=== PATIENT | male | born 1995 | race Caucasian/White ===

== ENCOUNTER 2017-06-23 20:58 | Emergency (ER) | payer BC ==
[2017-06-23 21:21] VITALS: BP 120/65
[2017-06-23] MEDS ORDERED: Ibuprofen TAB* 600 MG PO ONE (21:44)
[2017-06-23] MEDS ORDERED: Clindamycin CAP* 150 MG PO ONE (21:45)
--- NOTE | 2017-06-23 21:49 | UC ---
UC General HPI - HPI Summary HPI Summary: began as some pain to L lower jaw yesterday. today pt notes swelling that is worsening. he thinks he has a bad tooth. - History of Current Complaint Chief Complaint: UCDentalProblem Stated Complaint: JAW PAIN, SWELLING IN CHEEK Time Seen by Provider: 06/23/17 21:38 Hx Obtained From: Patient Onset/Duration: Gradual Onset Timing: Constant Pain Intensity: 10 Aggravating: nothing Alleviating: nothing Associated Signs & Symptoms: Negative: Fever, Headache - Allergy/Home Medications Allergies/Adverse Reactions: Allergies Allergy/AdvReac Type Severity Reaction Status Date / Time amoxicillin Allergy Rash Verified 06/23/17 21:14 Home Medications: Home Medications clonazePAM TAB(*) [Klonopin TAB(*)] 0.5 mg PO BID PRN 06/23/17 [History Confirmed 06/23/17] PMH/Surg Hx/FS Hx/Imm Hx Previously Healthy: Yes Other History Of: Negative For: HIV - Surgical History Surgical History: Yes Surgery Procedure, Year, and Place: TUBES IN EARS CHILD - Family History Known Family History: Positive: None - Social History Occupation: Employed Full-time Alcohol Use: Occasionally Substance Use Type: Marijuana, Other Substance Use Comment - Amount & Last Used: occassionally - ~03/23/15 Smoking Status (MU): Current Every Day Smoker Type: Cigarettes Amount Used/How Often: 1 PPD Length of Time of Smoking/Using Tobacco: 8 years Have You Smoked in the Last Year: Yes Household Exposure Type: Cigarettes - Immunization History Most Recent Influenza Vaccination: Not the Season Vaccination Up to Date: Yes Review of Systems Constitutional: Negative Skin: Negative Eyes: Negative ENT: Dental Pain - L lower jaw Respiratory: Negative Cardiovascular: Negative Gastrointestinal: Negative Genitourinary: Negative Motor: Negative Neurovascular: Negative Musculoskeletal: Negative Neurological: Negative Psychological: Negative Is Patient Immunocompromised?: No All Other Systems Reviewed And Are Negative: Yes Physical Exam Triage Information Reviewed: Yes Appearance: Well-Appearing Vital Signs: Initial Vital Signs Temp 98.9 F 06/23/17 21:16 Pulse 79 06/23/17 21:16 Resp 16 06/23/17 21:16 BP 120/65 06/23/17 21:16 Pulse Ox 97 06/23/17 21:16 Vital Signs Reviewed: Yes Eyes: Positive: Conjunctiva Clear ENT: Positive: Pharyngeal erythema, TMs normal. Negative: Nasal congestion, Nasal drainage Dental: Positive: Other: - L lower posterior bicuspid tender to percussion. Jaw next to that area is swollen, tender but not fluctuant. Neck: Positive: Supple, Nontender, No Lymphadenopathy Respiratory: Positive: Lungs clear, Normal breath sounds Cardiovascular: Positive: RRR, No Murmur Abdomen Description: Positive: Nontender, No Organomegaly, Soft Bowel Sounds: Positive: Present Musculoskeletal: Positive: ROM Intact Neurological: Positive: Alert Psychological: Positive: Age Appropriate Behavior Skin Exam: Normal Course/Dx - Course Course Of Treatment: c/w dental abscess. nothing to I &D. no ludwigs angina. - Differential Dx - Multi-Symptom Provider Diagnoses: Abscess L jaw Discharge - Sign-Out/Discharge Documenting (check all that apply): Discharge - Discharge Plan Condition: Stable Disposition: HOME Prescriptions: Clindamycin Cap(NF) [Clindamycin Cap 300 mg Cap(NF)] 300 mg PO TID #30 cap Naproxen [Naprosyn] 500 mg PO BID #14 tablet Patient Education Materials: Dental Abscess (ED) Referrals: Nat Arreola PA [Primary Care Provider] - If Needed Additional Instructions: FOLLOW UP WITH A DENTIST ON MONDAY-LIST PROVIDED OF LOCAL DENTISTS. GO TO ER FOR ANY WORSENING. - Billing Disposition and Condition Condition: STABLE Disposition: HOME
== END 2017-06-23 21:58 | disposition home or self-care (01) ==
LOC: UCCORT 20:58
DX: M27.2 Inflammatory conditions of jaws (principal); F17.210 Nicotine dependence, cigarettes, uncomplicated; Z88.3 Allergy status to other anti-infective agents
CPT/HCPCS: 99212; A9270-GY; G0463